=== PATIENT | male | born 1990 | race Caucasian/White ===

== ENCOUNTER 2020-01-18 15:01 | Emergency (ER) | payer OTHER, SELFPAY ==
--- NOTE | 2020-01-18 15:00 | DI.RAD_ITS ---
EXAM: XR ANKLE LT COMPLETE and XR tib fib LT CLINICAL HISTORY: pain, 2 weeks post op TECHNIQUE: 2D digital imaging was performed. COMPARISON: There are no previous for comparison. FINDINGS: BONES: There is a sideplate and screws transfixing the distal left fibular fracture. The alignment o f the orthopedic hardware and fracture components is unremarkable. There is fixation of the distal t ibial fibular syndesmosis. No acute fracture or dislocation is present. No bony destructive lesion is seen. JOINTS:The ankle mortise is normally aligned. SOFT TISSUE: Mild soft tissue swelling about the ankle is noted. IMPRESSION: Status post internal fixation of the distal left fibular fracture and the distal tibial fibular synde smosis. DATA REPOSITORY: RADIATION DOSE DELIVERED:
[2020-01-18 15:12] VITALS: BP 145/87; PULSE 73; TEMP 36.3; O2SAT 100
--- NOTE | 2020-01-18 15:18 | ED.GENADUL_ITS ---
Discharge Plan Disposition Patient Disposition: HOME Condition: Stable Discharge Details Clinical Impression: Post-operative pain Primary Care Provider: Bety,Local ED Provider: Rodolfo Ramirez Home Meds and New Rx's Prescriptions: Continued aspirin 325 mg Tablet 325 mg PO DAILY RF: 0 ibuprofen 800 mg Tablet 800 mg PO Q6H PRNRF: 0 oxycodone 5 mg Tablet 5 mg PO Q4H PRNRF: 0 zinc 10 mg Tablet 10 mg PO DAILY RF: 0 Discharge Instructions Additional Instructions: Please continue taking your medications as prescribed. Use orthopedic boot. Please follow-up with your systems specialist on Monday morning. Please return to the emergency department for any worsening or new concerning symptoms. Discharge Data Discharge Date/Time-TO BE ENTERED AT DEPARTURE: 01/18/20 17:10 Medical Decision Making 15:25 -- 29-year-old male here 2 to 3 weeks status post ORIF left fibula, had cast removed yesterday, now with increased pain in the area over the past 1 hour. Consider hardware migration. Will obtain x-ray of the tib-fib and ankle. Will treat pain with ice pack and Toradol IM as well as Tylenol. --X-ray interpreted by radiology: Hardware intact. Alignment good. Patient reassessed and pain significantly improved. Compartments remain soft. I believe orthopedic boot is a little too loose and patient is requesting a smaller boot. We will start him to smaller boot. Patient was instructed follow-up with his surgeon on Monday and to return if he has any worsening or new concerning symptoms. HPI General Mode of arrival: ambulatory . Date/Time Provider Initiated Documentation: 01/18/20 15:04 . Limitations to Documentation: no limitations . Information obtained by: patient . HPI Narrative: 29-year-old male presents 2-3 weeks status post ORIF left fibula with fairly sudden onset pain about 1 hour ago in distal fibula and foot. Pain is severe. Patient notes he had his cast removed yesterday and is currently in a orthopedic postoperative boot. Patient originally injured ankle while skateboarding. Patient did take oxycodone and took ibuprofen this morning. Of note, patient is from [facility]. He has been here for 1 day. He is not have any respiratory symptoms or fever. Related Data Home Medications Medication Instructions Recorded Confirmed aspirin 325 mg PO DAILY 01/18/20 01/18/20 ibuprofen 800 mg PO Q6H PRN 01/18/20 01/18/20 oxycodone 5 mg PO Q4H PRN 01/18/20 01/18/20 zinc 10 mg PO DAILY 01/18/20 01/18/20 Allergies Allergy/AdvReac Type Severity Reaction Status Date / Time No Known Allergies Allergy Unverified 01/18/20 15:18 General Stated Complaint: Orthopedic PIPPA: 3 Review of Systems Musculoskeletal Musculoskeletal: Reports as per HPI and Denies numbness Neurologic Neurologic: Denies numbness [facility] Social History Smoking/Tobacco Use Status: Current every day Tobacco Type: cigarettes Alcohol Intake: current Alcohol Intake frequency: a few times a week Alcohol type: beer Drug use: Daily Substance use type: marijuana Do you feel safe at home: Yes Do you feel safe in your relationship?: Yes Exam Const General: cooperative Orientation: alert and awake Cardio Rate: regular rate Rhythm: regular rhythm Pulses: dorsalis pedis present on the left 2+ Neuro Sensory Exam: no sensory deficits noted (Distal left foot) Extrem Left lower extremity: lower leg Details: tenderness Location: of the distal fibula and other (Mild swelling of the foot, compartments are soft, surgical wound appears to be healing well with no erythema, discharge or induration), ankle Details: tenderness Location: of the lateral malleolus and foot Details: tenderness (Proximal foot dorsally) Course Vital Signs Vital signs: Vital Signs Temperature 36.3 C L 01/18/20 15:12 Pulse 73 01/18/20 15:12 Blood Pressure 145/87 H 01/18/20 15:12 Pulse Oximetry 100 01/18/20 15:12 Temperature 36.3 C L 01/18/20 15:12 Temperature Source Temporal Artery Scan 01/18/20 15:12 Pulse 73 01/18/20 15:12 Respiratory Effort Non-Labored 01/18/20 15:16 Blood Pressure 145/87 H 01/18/20 15:12 Blood Pressure Position Sitting 01/18/20 15:12 Pulse Oximetry 100 01/18/20 15:12 Oxygen Delivery Method Room Air 01/18/20 15:12 Oxygen Flow Rate 0 01/18/20 15:12
[2020-01-18] MEDS: Acetaminophen 325 MG TAB 650 MG PO (15:28)
[2020-01-18] MEDS: Ketorolac 30 MG/ML VIAL IM (15:28)
--- NOTE | 2020-01-18 16:13 | DI.VRAD_ITS ---
PROCEDURE INFORMATION: Exam: XR Left Tibia and Fibula Exam date and time: 01/18/2020 4:06 PM Age: 29 years old Clinical indication: Other: Pain, 2 weeks post-op; Prior surgery; Surgery date: <1 month TECHNIQUE: Imaging protocol: XR Left tibia and fibula. Views: 2 views. COMPARISON: No relevant prior studies available. FINDINGS: Bones/joints: Hardware in the distal fibula and tibia appears intact. Anatomic alignment. No evidence of loosening or infection. Fracture in distal fibula is noted. Soft tissues: Normal. IMPRESSION: Intact hardware. Dictated and Authenticated by: Lc Nicolas MD. Ordering:GEORGE Reynolds MD
--- NOTE | 2020-01-18 16:14 | DI.VRAD_ITS ---
PROCEDURE INFORMATION: Exam: XR Left Ankle Exam date and time: 01/18/2020 4:06 PM Age: 29 years old Clinical indication: Other: Pain, 2 weeks post-op; Prior surgery; Surgery date: <1 month TECHNIQUE: Imaging protocol: XR Left ankle. Views: 3 or more views. COMPARISON: No relevant prior studies available. FINDINGS: Bones/joints: Hardware in the distal fibula and tibia appears intact. Anatomic alignment. No evidence of loosening or infection. Fracture in distal fibula is noted. Soft tissues: Normal. IMPRESSION: Intact hardware. Dictated and Authenticated by: Lc Nicolas MD. Ordering:GEORGE Reynolds MD
== END 2020-01-18 17:10 | disposition home or self-care (01) ==
LOC: ER 17:07
PROVIDERS: Emergency Provider Student in an Organized Health Care Education/Training Program
DX: M79.662 Pain in left lower leg (principal); G89.18 Other acute postprocedural pain
CPT/HCPCS: 96372; 99284; 73590; 73610; 99283; E0114; J1885